=== PATIENT | male | born 1935 | race Caucasian/White ===

== ENCOUNTER → 2020-03-04 | Outpatient (CLI) | payer MEDICARE ==
[~2020-03-04] MED LIST: CALC-555 PO; CETI10TA26 PO; CHOL100012 PO; FLAX1OIL PO; MAGN71.5 PO; METH454P PO; MONT10TA6 PO; MOVE FREE ULTR1 EACH PO; OMEG1CAP23 PO; PSYL174P2 PO; RAMI2.5C2 PO; VARD10TA4 PO; VIT1CAPS9 PO; VITA150T PO; WHEA236P PO
== END | disposition home or self-care (01) ==
LOC: CFH 12:32
PROVIDERS: ATTEND Internal Medicine Cardiovascular Disease
DX: I08.2 Rheumatic disorders of both aortic and tricuspid valves (principal); Z86.73 Personal history of transient ischemic attack (TIA), and cerebral infarction without residual deficits; I27.20 Pulmonary hypertension, unspecified
CPT/HCPCS: 93306